=== PATIENT | female | born 1945 | race Native Hawaiian/Other Pacific Islander ===

== ENCOUNTER 2016-10-06 08:46 | Outpatient (CLI) | payer OTHER ==
[~2016-10-06 08:46] MED LIST: AMLO2.5T PO; CARB25TA29 PO; COMBIVENT INH; DOXEPIN HCL10 MG PO; GABA300C2 PO; HYDR-3182 PO; ISOS60TA6 PO; LIPITOR20 MG PO; PARO20TA3 PO; TRAM50TA PO; VITAMIN D-35000 UNIT OR
== END 2016-10-06 22:08 | disposition home or self-care (01) ==
LOC: MAMMO 08:46
DX: Z12.31 Encounter for screening mammogram for malignant neoplasm of breast (principal)
CPT/HCPCS: G0202-TC

== ENCOUNTER 2016-10-21 07:38 | Day surgery (SDC) | payer OTHER | END 2016-10-21 11:10 | disposition home or self-care (01) | LOC: OR 07:38 | PROC: 0DJD8ZZ Inspection of Lower Intestinal Tract, Via Natural or Artificial Opening Endoscopic (ICD-10-PCS; principal; 2016-10-21) | DX: K64.8 Other hemorrhoids (principal); K57.30 Diverticulosis of large intestine without perforation or abscess without bleeding; Z12.11 Encounter for screening for malignant neoplasm of colon | CPT/HCPCS: J2704 ==

== ENCOUNTER 2016-12-22 13:33 | Outpatient (CLI) | payer OTHER | END 2016-12-22 14:33 | disposition home or self-care (01) | LOC: RAD 13:33 | DX: M25.572 Pain in left ankle and joints of left foot (principal) ==

== ENCOUNTER 2017-01-10 10:45 | Outpatient (CLI) | payer OTHER | END 2017-01-10 12:00 | disposition home or self-care (01) | LOC: RAD 10:45 | DX: M54.89 Other dorsalgia (principal) ==

== ENCOUNTER 2017-02-06 12:50 | Outpatient (CLI) | payer OTHER | END 2017-02-06 14:00 | disposition home or self-care (01) | LOC: RAD 12:50 | DX: M81.0 Age-related osteoporosis without current pathological fracture (principal) ==

== ENCOUNTER 2017-04-27 10:06 | Outpatient (CLI) | payer OTHER | END 2017-04-27 10:18 | disposition short-term general hospital (02) | LOC: AMB 10:06 | DX: R07.89 Other chest pain (principal) | CPT/HCPCS: A0425; A0427 ==

== ENCOUNTER 2017-04-27 10:26 | Observation (INO) | payer OTHER ==
[2017-04-27] VITALS (7 sets, daily range): BP systolic 116–137; BP diastolic 49–70; TEMP 98.1–98.4; Ht 160 cm; Wt 108.4 kg
[~2017-04-27] VITALS: Ht 160 cm; Wt 108.4 kg
[2017-04-27 11:12] LABS: POTASSIUM 4.1 mmol/L (3.6-5.2); SODIUM 140 mmol/L (136-145)
[2017-04-27 11:20] LABS: PLATELET COUNT 296 K/uL (152-353)
[2017-04-28] VITALS: BP 128/62; TEMP 97.5
[2017-04-28 04:00] VITALS: BP 139/56; TEMP 98.3
[2017-04-28 08:00] VITALS: BP 150/74; TEMP 98.7
== END 2017-04-28 10:57 | disposition home or self-care (01) ==
LOC: ED 10:26 → MED/SURG 11:46
DX: R07.89 Other chest pain (principal); I10 Essential (primary) hypertension; K21.9 Gastro-esophageal reflux disease without esophagitis; G20 Parkinson's disease; Z86.73 Personal history of transient ischemic attack (TIA), and cerebral infarction without residual deficits
CPT/HCPCS: 36415; 80053; 82550; 82553; 84484; 85027; 93005; 94760; 96372; 99220; 99284; G0378; J1650

== ENCOUNTER 2017-06-05 10:45 | Outpatient (CLI) | payer OTHER | END 2017-06-05 11:45 | disposition home or self-care (01) | LOC: LAB 10:45 | DX: R19.7 Diarrhea, unspecified (principal) | CPT/HCPCS: 87015; 87045; 87205; 87324; 87328; 87329; 87449; 87899 ==

== ENCOUNTER 2017-10-12 09:16 | Day surgery (SDC) | payer OTHER | END 2017-10-12 13:02 | disposition home or self-care (01) | LOC: OR 09:16 | PROC: 08RJ3JZ Replacement of Right Lens with Synthetic Substitute, Percutaneous Approach (ICD-10-PCS; principal; 2017-10-12) | DX: H25.811 Combined forms of age-related cataract, right eye (principal) | CPT/HCPCS: 66984; V2632 ==

== ENCOUNTER 2017-12-14 07:08 | Day surgery (SDC) | payer OTHER | END 2017-12-14 09:32 | disposition home or self-care (01) | LOC: OR 07:08 | PROC: 08RK3JZ Replacement of Left Lens with Synthetic Substitute, Percutaneous Approach (ICD-10-PCS; principal; 2017-12-14) | DX: H25.812 Combined forms of age-related cataract, left eye (principal) | CPT/HCPCS: 66984; J0171; V2632 ==

== ENCOUNTER 2017-12-21 10:44 | Outpatient (CLI) | payer OTHER | END 2017-12-21 11:01 | disposition short-term general hospital (02) | LOC: AMB 10:44 | DX: G43.809 Other migraine, not intractable, without status migrainosus (principal); R52 Pain, unspecified | CPT/HCPCS: A0425; A0427 ==

== ENCOUNTER 2017-12-21 11:20 | Emergency (ER) | payer OTHER ==
[~2017-12-21] VITALS: Ht 152.4 cm; Wt 146.1 kg
[2017-12-21 12:03] LABS: POTASSIUM 3.6 mmol/L (3.6-5.2)
[2017-12-21 12:12] LABS: PLATELET COUNT 362 K/uL (152-353)
[2017-12-21 13:55] VITALS: BP 139/82; TEMP 98
== END 2017-12-21 13:55 | disposition home or self-care (01) ==
LOC: ED 11:20
PROVIDERS: Family Medicine
DX: G43.909 Migraine, unspecified, not intractable, without status migrainosus (principal); M19.90 Unspecified osteoarthritis, unspecified site
CPT/HCPCS: 80053; 85027; 96374; 96375; 99284; J1170; J2405

== ENCOUNTER 2017-12-27 14:37 | Outpatient (CLI) | payer OTHER | END 2017-12-27 14:48 | disposition short-term general hospital (02) | LOC: AMB 14:37 | DX: I20.8 Other forms of angina pectoris (principal) | CPT/HCPCS: A0425; A0427 ==

== ENCOUNTER 2017-12-27 15:04 | Emergency (ER) | payer OTHER ==
[~2017-12-27] VITALS: Ht 152.4 cm; Wt 99.8 kg
[2017-12-27 15:30] VITALS: TEMP 97.2
[2017-12-27 16:48] LABS: PLATELET COUNT 419 K/uL (152-353)
[2017-12-27 16:58] LABS: PARTIAL THROMBOPLASTIN TIME 25.6 SECONDS (24.5-33.6)
[2017-12-27 17:02] LABS: POTASSIUM 3.9 mmol/L (3.6-5.2); SODIUM 141 mmol/L (136-145)
[2017-12-27 17:30] VITALS: BP 130/70
== END 2017-12-27 18:20 | disposition home or self-care (01) ==
LOC: ED 15:04
DX: R07.89 Other chest pain (principal); R00.1 Bradycardia, unspecified
CPT/HCPCS: 36415; 80053; 82550; 84484; 85027; 85610; 85730; 93005; 99283

== ENCOUNTER 2018-11-03 11:44 | Outpatient (CLI) | payer OTHER | END 2018-11-03 23:59 | disposition home or self-care (01) | LOC: MAMMO 11:44 | DX: Z12.31 Encounter for screening mammogram for malignant neoplasm of breast (principal) ==

== ENCOUNTER 2019-04-26 13:44 | Emergency (ER) | payer OTHER ==
[~2019-04-26] VITALS: Ht 152.4 cm; Wt 99.8 kg
[2019-04-26 13:50] VITALS: TEMP 98.1
[2019-04-26] MEDS ORDERED: METOPROLOL25 M1 PO (14:20)
[2019-04-26] MEDS ORDERED: ASPIRIN 8181 MG PO (14:21)
[2019-04-26] MEDS ORDERED: ALLERGY NA50 MCG/ACT NAS (14:22)
[2019-04-26] MEDS ORDERED: NITR0.4S2 SL (14:22)
[2019-04-26 16:24] LABS: PLATELET COUNT 279 K/uL (152-353)
[2019-04-26 16:31] LABS: POTASSIUM 3.1 mmol/L (3.6-5.2)
[2019-04-26 18:35] VITALS: BP 110/68
== END 2019-04-26 18:35 | disposition home or self-care (01) ==
LOC: ED 13:44
PROVIDERS: Family Medicine
DX: G44.009 Cluster headache syndrome, unspecified, not intractable (principal); E87.6 Hypokalemia
CPT/HCPCS: 36415; 80053; 85027; 96374; 96375; 99284; J2175; J2405

== ENCOUNTER 2019-05-05 12:57 | Emergency (ER) | payer OTHER ==
[~2019-05-05] VITALS: Ht 152.4 cm; Wt 99.8 kg
[2019-05-05 12:57] VITALS: TEMP 97.9
[~2019-05-05 12:57] MED LIST changes: +ALLERGY NA50 MCG/ACT NAS; +ASPIRIN 8181 MG PO; +METOPROLOL25 M1 PO; +NITR0.4S2 SL
[2019-05-05 13:29] LABS: PLATELET COUNT 328 K/uL (152-353)
[2019-05-05 13:32] LABS: SODIUM 140 mmol/L (136-145)
[2019-05-05 16:45] VITALS: BP 105/61
== END 2019-05-05 16:45 | disposition home or self-care (01) ==
LOC: ED 12:57
PROVIDERS: Student in an Organized Health Care Education/Training Program
DX: R07.89 Other chest pain (principal); R00.1 Bradycardia, unspecified
CPT/HCPCS: 80048; 83735; 83880; 84484; 85027; 85610; 85730; 93005; 99284

== ENCOUNTER 2020-01-06 15:46 | Emergency (ER) | payer OTHER ==
[~2020-01-06] VITALS: Ht 152.4 cm; Wt 99.8 kg
[2020-01-06 15:50] VITALS: TEMP 97.7
[2020-01-06 16:40] LABS: PLATELET COUNT 274 K/uL (152-353)
[2020-01-06 16:47] LABS: POTASSIUM 4.2 mmol/L (3.6-5.2); SODIUM 142 mmol/L (136-145)
[2020-01-06 16:55] LABS: PARTIAL THROMBOPLASTIN TIME 24.5 SECONDS (24.5-33.6)
[2020-01-06 18:38] VITALS: BP 153/59
== END 2020-01-06 18:38 | disposition home or self-care (01) ==
LOC: ED 15:46
PROVIDERS: Family Medicine
DX: K21.9 Gastro-esophageal reflux disease without esophagitis (principal); R07.89 Other chest pain
CPT/HCPCS: 80053; 82550; 84484; 85027; 85610; 85730; 93005; 99284

== ENCOUNTER 2020-03-16 09:03 | Emergency (ER) | payer OTHER ==
[~2020-03-16] VITALS: Ht 152.4 cm; Wt 99.8 kg
[2020-03-16 09:03] VITALS: TEMP 99.1
[2020-03-16 09:51] LABS: PLATELET COUNT 321 K/uL (152-353)
[2020-03-16 09:54] LABS: POTASSIUM 4.1 mmol/L (3.6-5.2)
[2020-03-16 10:04] LABS: PARTIAL THROMBOPLASTIN TIME 24.3 SECONDS (24.5-33.6)
[2020-03-16 11:40] VITALS: BP 157/83
== END 2020-03-16 11:56 | disposition home or self-care (01) ==
LOC: ED 09:09
PROVIDERS: Family Medicine
DX: N39.0 Urinary tract infection, site not specified (principal); G47.09 Other insomnia; F03.91 Unspecified dementia, unspecified severity, with behavioral disturbance; Z79.899 Other long term (current) drug therapy; Z51.81 Encounter for therapeutic drug level monitoring
CPT/HCPCS: 80053; 81000; 83880; 84484; 85027; 85610; 85730; 87077; 87086; 87088; 87186; 93005; 99283

== ENCOUNTER 2020-06-11 12:40 | Emergency (ER) | payer OTHER ==
[~2020-06-11] VITALS: Ht 154.9 cm; Wt 104.3 kg
[2020-06-11 12:40] VITALS: TEMP 98.9
[2020-06-11 13:20] LABS: PLATELET COUNT 437 K/uL (152-353)
[2020-06-11 13:40] LABS: POTASSIUM 4.4 mmol/L (3.6-5.2)
[2020-06-11 14:14] VITALS: BP 132/64
== END 2020-06-11 14:17 | disposition home or self-care (01) ==
LOC: ED 12:40
PROVIDERS: Emergency Medicine Emergency Medical Services
DX: S50.02XA Contusion of left elbow, initial encounter (principal); S50.01XA Contusion of right elbow, initial encounter; W18.39XA Other fall on same level, initial encounter; Y92.098 Other place in other non-institutional residence as the place of occurrence of the external cause
CPT/HCPCS: 36415; 80053; 85027; 96360; 96375; 99284; J1885

== ENCOUNTER 2020-10-25 11:58 | Emergency (ER) | payer OTHER ==
[~2020-10-25] VITALS: Ht 154.9 cm; Wt 104.3 kg
[2020-10-25 12:38] LABS: PLATELET COUNT 263 K/uL (152-353)
[2020-10-25 12:50] LABS: POTASSIUM 4.8 mmol/L (3.6-5.2); SODIUM 142 mmol/L (136-145)
[2020-10-25 12:52] LABS: PARTIAL THROMBOPLASTIN TIME 25.2 SECONDS (24.5-33.6)
[2020-10-25 14:40] VITALS: BP 148/80; TEMP 98
== END 2020-10-25 14:40 | disposition home or self-care (01) ==
LOC: ED 11:58
PROVIDERS: Hospitalist
DX: J06.9 Acute upper respiratory infection, unspecified (principal); R50.9 Fever, unspecified; Z20.828 Contact with and (suspected) exposure to other viral communicable diseases
CPT/HCPCS: 80053; 82550; 83880; 84484; 85027; 85610; 85730; 87502; 87635; 87651; 93005; 96365; 99284; J0696; U0003

== ENCOUNTER 2020-12-18 13:15 | Observation (INO) | payer OTHER ==
[~2020-12-18] VITALS: Ht 152.4 cm; Wt 84.1 kg
[2020-12-18 14:53] VITALS: BP 142/60; TEMP 98.9; Ht 152.4 cm; Wt 84.1 kg
[2020-12-18 15:26] LABS: PLATELET COUNT 284 K/uL (152-353)
[2020-12-18 15:57] LABS: PARTIAL THROMBOPLASTIN TIME 25.6 SECONDS (24.5-33.6)
[2020-12-18 16:00] VITALS: BP 148/62; TEMP 97.8
--- NOTE | 2020-12-18 16:00 | NUR ---
PT DENIES CHEST PAIN AT THIS TIME. PT REMAINS ROSE ON TEL . DR BONE NOTIFIED AND NEW ORDERS REC'D TO HOLD NITRO AT THIS TIME IF NO CHEST PAIN
[2020-12-18] MEDS ORDERED: CARB25TA29 PO (17:05)
[2020-12-18] MEDS ORDERED: METO100T37 PO (17:07)
[2020-12-18 20:00] VITALS: BP 137/62; TEMP 98.4
[2020-12-19] VITALS (7 sets, daily range): BP systolic 102–145; BP diastolic 47–65; TEMP 97.3–98.3
[2020-12-19 08:26] LABS: PLATELET COUNT 281 K/uL (152-353)
--- NOTE | 2020-12-19 09:16 | NUR ---
PT PULSE 58- METOPROLOL AND NITRO PASTE HELD AT THIS TIME. PT VERBALIZES THAT SHE DOES NOT HAVE DOXEPIN WITH HER AT THE HOSPITAL BUT THAT HER SON CAN BRING IT TONIGHT AFTER HE GETS OFF WORK.
--- NOTE | 2020-12-19 11:34 | NUR ---
ASKED U/S TO CORRECT CARDIAC LABS TO Q8 PER WRITTEN MD ORDER.
--- NOTE | 2020-12-19 15:03 | NUR ---
NITRO HELD D/T PULSE BEING 55. PT DENIES CP AT THIS TIME.
--- NOTE | 2020-12-19 16:02 | NUR ---
REACHED OUT TO PATT CALVERT, PT'S SON TO BRING DOXEPIN. PER PATT, HE WILL BRING MED TONIGHT AFTER HE GETS OFF WORK.
--- NOTE | 2020-12-19 16:37 | NUR ---
PT ASSISTED TO BATHROOM THEN UP TO RECLINER.
--- NOTE | 2020-12-19 18:13 | NUR ---
DR. BONE IN TO SEE PT. VO GIVEN TO ADMIN METOPROLOL PER DR. BONE.
--- NOTE | 2020-12-19 23:27 | NUR ---
PATIENT IS ALERT AND ORIENTED EXCEPT TO TIME. PATIENT STATES, SHE HAS BEEN HERE A WEEK." PATIENT CAN GET UP TO THE BEDSIDE COMMODE WITH HER ROLLING WALKER WITH STANDBY ASSIST. PATIENT DENIES ANY CHEST PAIN OR WEAKNESS. IV SITE IS CLEAN DRY AND INTACT
--- NOTE | 2020-12-20 01:35 | NUR ---
PATIENT DENIES ANY PAIN AND IS NOW RESTING QUIETLY
[2020-12-20 04:19] LABS: PLATELET COUNT 258 K/uL (152-353)
[2020-12-20 04:21] VITALS: BP 107/46; TEMP 98.3
--- NOTE | 2020-12-20 04:38 | NUR ---
PATIENT BP IS LOW. IT IS 107/46. NITRO PASTE IS HELD AND OLD PATCH REMOVED AT 0300. PATIENT NOT SHOWING ANY ADVERSE EFFECTS OF LOW BP
[2020-12-20 04:41] LABS: POTASSIUM 4.9 mmol/L (3.6-5.2)
[2020-12-20 08:00] VITALS: BP 119/53; TEMP 98.2
--- NOTE | 2020-12-20 09:05 | NUR ---
PT HR PER TELEMETRY 65. METOPROLOL 25MG ADMIN PER MD ORDER.
--- NOTE | 2020-12-20 09:15 | NUR ---
PER PT'S SON DOREEN, SOURCE USUALLY TAKES PATIENT TO HER MD APPOINTMENTS. THIS WAS RELAYED TO U/S AND U/R. ALSO, PER PT'S SON DOREEN, HER OTHER SON MARIAN WILL BE ABLE TO PICK HER UP TODAY AND TAKE HER HOME. [phone] MARIAN- [phone]
--- NOTE | 2020-12-20 09:47 | NUR ---
PER ROMY ELKINS IN U/R- SHE CONTACTED GABBY (PT'S DISC RULER OPERATOR) TO SET UP RIDE TO PATIENTS CARDIOLOGY APPT WITH DR. HORVATH AND TO APPT WITH DR. BONE.
--- NOTE | 2020-12-20 11:20 | NUR ---
DC INSTRUCTIONS EXPLAINED TO PT AND TO HER SON MARIAN, BOTH VERBALIZED UNDERSTANDING. PT BELONGINGS COLLECTED AND SENT HOME WITH PT. PT LEFT FLOOR IN NAD, DENIES CP, WHEELED TO EXIT FOR TRANSPORT HOME WITH SON.
== END 2020-12-20 11:20 | disposition home or self-care (01) ==
LOC: MED/SURG 13:15
PROVIDERS: ADMIT Family Medicine; ATTEND Family Medicine
DX: R07.9 Chest pain, unspecified (principal); N30.01 Acute cystitis with hematuria; I10 Essential (primary) hypertension; G20 Parkinson's disease
CPT/HCPCS: 36415; 80053; 82550; 82728; 83735; 84100; 84484; 85027; 85379; 85610; 85730; 86140; 86318; 87635; 93005; 99220; G0378; G0379; J1650; U0003

== ENCOUNTER 2021-05-29 11:24 | Emergency (ER) | payer OTHER ==
[~2021-05-29] VITALS: Ht 152.4 cm; Wt 90.7 kg
[~2021-05-29 11:24] MED LIST changes: +METO100T37 PO
[2021-05-29 11:29] VITALS: BP 124/70; TEMP 97.9
== END 2021-05-29 12:46 | disposition home or self-care (01) ==
LOC: ED 11:24
DX: M79.18 Myalgia, other site (principal); M54.2 Cervicalgia
CPT/HCPCS: 96372; 99283; J1885

== ENCOUNTER 2021-06-12 12:26 | Outpatient (CLI) | payer OTHER ==
[2021-06-12 13:16] LABS: PLATELET COUNT 317 K/uL (152-353)
[2021-06-12 13:31] LABS: POTASSIUM 4.4 mmol/L (3.6-5.2); SODIUM 143 mmol/L (136-145)
== END 2021-06-12 20:37 | disposition home or self-care (01) ==
LOC: CT 12:26
PROVIDERS: ATTEND Nurse Practitioner Family
DX: R06.09 Other forms of dyspnea (principal)
CPT/HCPCS: 36415; 80053; 82550; 82553; 82728; 83880; 84484; 85027; 85379; 86140; Q9963

== ENCOUNTER 2021-10-30 13:03 | Outpatient (CLI) | payer OTHER | END 2021-10-30 19:00 | disposition home or self-care (01) | LOC: CT 13:03 | PROVIDERS: ATTEND Internal Medicine Sleep Medicine | DX: R91.8 Other nonspecific abnormal finding of lung field (principal) ==

== ENCOUNTER 2022-07-11 11:43 | Observation (INO) | payer OTHER ==
[~2022-07-11] VITALS: Ht 152.4 cm; Wt 80.9 kg
[2022-07-11 12:01] VITALS: BP 132/79; TEMP 97.4
[2022-07-11 12:33] LABS: PLATELET COUNT 274 K/uL (152-353)
[2022-07-11 12:36] LABS: POTASSIUM 4.7 mmol/L (3.6-5.2)
[2022-07-11 16:01] VITALS: BP 152/76; TEMP 97
[2022-07-11 16:03] VITALS: BP 152/76; TEMP 97.9; Ht 152.4 cm; Wt 80.9 kg
[2022-07-11] MEDS ORDERED: LIPITOR20 MG PO (17:56)
[2022-07-11] MEDS ORDERED: ELIQUIS5 MG PO (17:56)
[2022-07-11] MEDS ORDERED: PARO20TA3 PO (17:56)
[2022-07-11] MEDS ORDERED: CARB25TA29 PO (17:57)
[2022-07-11] MEDS ORDERED: AMLODIPINE BESYLATE PO (17:58)
[2022-07-11] MEDS ORDERED: ISOS60TA6 PO (17:58)
[2022-07-11] MEDS ORDERED: DOXEPIN HCL10 MG PO (17:58)
[2022-07-11] MEDS ORDERED: KLOR-CON M2020 MEQ PO (17:59)
[2022-07-11] MEDS ORDERED: METO25TA2 PO (17:59)
[2022-07-11] MEDS ORDERED: MELATONIN EXTRA10 MG PO (18:00)
[2022-07-11 20:00] VITALS: BP 113/57; TEMP 97.6
[2022-07-12 00:01] VITALS: BP 105/38; TEMP 97.9
[2022-07-12 04:01] VITALS: BP 126/70; TEMP 98
[2022-07-12 08:00] VITALS: BP 116/57; TEMP 98.5
== END 2022-07-12 12:08 | disposition home or self-care (01) ==
LOC: ED 11:43 → MED/SURG 14:30
PROVIDERS: Family Medicine; ADMIT Internal Medicine; ATTEND Internal Medicine
DX: R07.89 Other chest pain (principal); I10 Essential (primary) hypertension; G20 Parkinson's disease; E78.49 Other hyperlipidemia; I48.20 Chronic atrial fibrillation, unspecified; Z79.01 Long term (current) use of anticoagulants; G40.802 Other epilepsy, not intractable, without status epilepticus; M15.8 Other polyosteoarthritis; G62.89 Other specified polyneuropathies
CPT/HCPCS: 36415; 80053; 81002; 82150; 82550; 82607; 83690; 84443; 84484; 85027; 85610; 85730; 87635; 93005; 96372; 99220; 99284; G0378; J1650; U0003

== ENCOUNTER 2022-09-19 14:36 | Emergency (ER) | payer OTHER ==
[~2022-09-19] VITALS: Ht 152.4 cm; Wt 80.7 kg
[~2022-09-19 14:36] MED LIST changes: +AMLODIPINE BESYLATE PO; +ELIQUIS5 MG PO; +KLOR-CON M2020 MEQ PO; +MELATONIN EXTRA10 MG PO; +METO25TA2 PO
[2022-09-19 14:39] VITALS: TEMP 99.3
[2022-09-19 18:41] VITALS: BP 138/66
== END 2022-09-19 18:56 | disposition home or self-care (01) ==
LOC: ED 14:36
DX: U07.1 COVID-19 (principal)
CPT/HCPCS: 87502; 87635; 87651; 96372; 99283; J1100; U0003

== ENCOUNTER 2022-11-03 15:58 | Emergency (ER) | payer OTHER ==
[~2022-11-03] VITALS: Ht 152.4 cm; Wt 79.4 kg
[2022-11-03 15:58] VITALS: BP 139/93; TEMP 98.7
[2022-11-03 16:41] LABS: PLATELET COUNT 275 K/uL (152-353)
[2022-11-03 16:48] LABS: POTASSIUM 3.2 mmol/L (3.6-5.2)
== END 2022-11-03 18:37 | disposition home or self-care (01) ==
LOC: ED 15:58
PROVIDERS: Emergency Medicine Emergency Medical Services
DX: E86.0 Dehydration (principal); E87.6 Hypokalemia; K52.89 Other specified noninfective gastroenteritis and colitis
CPT/HCPCS: 36415; 80053; 81000; 82150; 83690; 83735; 84484; 85027; 93005; 96361; 96374; 96375; 99284; J2405; J3490

== ENCOUNTER 2022-11-10 08:50 | Emergency (ER) | payer OTHER ==
[~2022-11-10] VITALS: Ht 152.4 cm; Wt 96.2 kg
[2022-11-10 09:27] LABS: PLATELET COUNT 291 K/uL (152-353)
[2022-11-10 09:35] LABS: POTASSIUM 4.3 mmol/L (3.6-5.2)
[2022-11-10 14:06] VITALS: BP 92/51; TEMP 98.9
== END 2022-11-10 14:15 | disposition home or self-care (01) ==
LOC: ED 08:50
PROVIDERS: Emergency Medicine Emergency Medical Services
DX: R07.89 Other chest pain (principal); Z20.822 Contact with and (suspected) exposure to COVID-19
CPT/HCPCS: 80053; 81002; 83735; 83880; 84484; 85027; 85610; 87635; 93005; 96360; 96361; 99284; U0003

== ENCOUNTER 2023-02-28 18:04 | Observation (INO) | payer OTHER ==
[~2023-02-28] VITALS: Ht 152.4 cm; Wt 79.1 kg
[2023-02-28 18:04] VITALS: BP 135/112; TEMP 97
[2023-02-28 18:38] LABS: PLATELET COUNT 301 K/uL (152-353)
[2023-02-28 18:46] LABS: POTASSIUM 4.1 mmol/L (3.6-5.2)
[2023-02-28 20:15] VITALS: BP 130/82; TEMP 97
[2023-02-28 21:23] VITALS: BP 124/77; TEMP 98.1; Ht 152.4 cm; Wt 79.1 kg
[2023-02-28 23:31] VITALS: BP 133/87; TEMP 98.3
[2023-03-01 03:34] VITALS: BP 143/64; TEMP 98.5
[2023-03-01 05:25] LABS: PLATELET COUNT 270 K/uL (152-353)
[2023-03-01 05:38] LABS: POTASSIUM 3.8 mmol/L (3.6-5.2)
[2023-03-01 08:00] VITALS: BP 148/86; TEMP 98.4
[2023-03-01] MEDS ORDERED: TRAMADOL HYDROC50 MG PO (10:43)
[2023-03-01] MEDS ORDERED: NITR0.4S2 SL (10:44)
[2023-03-01] MEDS ORDERED: GABA300C2 PO (10:44)
[2023-03-01] MEDS ORDERED: AZO TABS95 MG PO (10:46)
[2023-03-01] MEDS ORDERED: MULTIVITAMIN WO1 TA1 PO (10:48)
[2023-03-01 11:57] VITALS: BP 143/81; TEMP 98.3
[2023-03-01 16:08] VITALS: BP 147/82; TEMP 98
[2023-03-01 19:35] VITALS: BP 128/59; TEMP 98.2
[2023-03-01 23:34] VITALS: BP 139/90; TEMP 98.3
[2023-03-02 03:39] VITALS: BP 117/63; TEMP 98
[2023-03-02 08:00] VITALS: BP 141/85; TEMP 98.4
[2023-03-02] MEDS ORDERED: PANTOPRAZOLE 40MG TA PO (10:34)
== END 2023-03-02 13:15 | disposition home or self-care (01) ==
LOC: ED 18:04 → MED/SURG 19:38
PROVIDERS: Family Medicine; ADMIT Internal Medicine; ATTEND Internal Medicine
DX: R11.2 Nausea with vomiting, unspecified (principal); K92.1 Melena; K92.2 Gastrointestinal hemorrhage, unspecified; I10 Essential (primary) hypertension; I48.20 Chronic atrial fibrillation, unspecified; Z79.01 Long term (current) use of anticoagulants; G20 Parkinson's disease; F32.A Depression, unspecified; E78.49 Other hyperlipidemia; R41.3 Other amnesia
CPT/HCPCS: 43754; 80048; 80053; 82271; 83986; 84484; 85027; 85610; 86850; 86900; 86901; 93005; 96360; 96361; 96365; 96375; 99221; 99284; G0378; J3490